=== PATIENT | male | born 1980 | race Native Hawaiian/Other Pacific Islander ===

== ENCOUNTER 2019-09-17 10:36 | Emergency (ER) | payer SELFPAY ==
[2019-09-17] MEDS ORDERED: ORPHENADRINE CITRATE 60 MG/2 ML ML IM ONE (10:42)
--- NOTE | 2019-09-17 10:42 | ED Physician Documentation ---
Upper Extremity Injury - HISTORIAN Historian: patient - HPI Stated Complaint: right arm pain Chief Complaint: Upper Extremity Problem Onset: today Where: home Severity: severe Duration: persistent since Context: other (no injury ) Modifying Factors: pain on movement Further Comments: yes (He states he feels like he is having "the worse of all times muscle cramp" He has no injury to report about one hour ago he took 600 mg of Ibuprofen with mild relief. He states pain is 10/10) - ROS CONST: no problems - PAST HX Past History: none Immunizations: UTD Allergies/Adverse Reactions: Allergies Allergy/AdvReac Type Severity Reaction Status Date / Time No Known Allergies Allergy Verified 09/17/19 10:40 Home Medications: Ambulatory Orders Medication Instructions Recorded NK 09/17/19 - SOCIAL HX Smoking History: cigarettes Alcohol Use: none Drug Use: none - FAMILY HX Family History: none - VITAL SIGNS Vital Signs: Vital Signs Temp Pulse Resp BP Pulse Ox 97.9 F 69 18 180/126 98 09/17/19 10:38 09/17/19 10:38 09/17/19 10:38 09/17/19 10:38 09/17/19 10:38 - REVIEWED ASSESSMENTS Nursing Assessment Reviewed: Yes Vitals Reviewed: Yes ED Results Lab/Radiology - Orders Orders: ED Orders Category Date Time Status Orphenadrine Citrate [Norflex] Med 09/17/19 10:42 Once 60 mg IM NOW ONE methylPREDNISolone ACETATE [DEPO-Medrol] Med 09/17/19 10:43 Once 80 mg IM NOW ONE Upper Extremity Injury Physic - Physical Exam General Appearance: no acute distress, alert Hand: normal inspection Wrist: normal inspection Shoulder: normal inspection, limited ROM, pain (muscle tender and tight ), soft tissue tenderness Neuro/Vascular/Tendon: no vascular compromise Skin: warm,dry Head/ENT: nml inspection Neck/Back: nml inspection Resp/CVS: chest non-tender, breath sounds nml, heart sounds nml, no resp. distress, lungs clear, reg. rate & rhythm Abdomen: non-tender Discharge Clincal Impression: Muscle spasm Referrals: Primary Doctor,No [Primary Care Provider] - 2 Days Comments: 1. Continue heat for comfort 2. OTC meds for pain as directed as needed 3. Flexeril 10 mg take 1 by mouth in 8 hours and then every 8 hours as needed for pain 4. See PCP in 2 days if no improvement 5. Return to ER for any increased concerns Condition: Stable Disposition: 01 HOME, SELF-CARE Decision to Admit: NO Date of Decison to Admit: 09/17/19 Decision Time: 10:55
[2019-09-17] MEDS ORDERED: methylPREDNISolone ACETATE 80 MG/ML VIAL IM ONE (10:43)
[2019-09-17 10:59] VITALS: BP 172/98
== END 2019-09-17 10:59 | disposition home or self-care (01) ==
LOC: ED 10:36
DX: M62.838 Other muscle spasm (principal); M79.601 Pain in right arm
CPT/HCPCS: 96372; 99284; J1040; J2360